=== PATIENT | male | born 1985 | race Caucasian/White ===

== ENCOUNTER 2016-08-18 17:34 | Emergency (ER) | payer SELFPAY ==
[2016-08-18] MEDS ORDERED: Bupivacaine 0.25% 10 ML SDV INJECT ONE (17:40)
[2016-08-18] MEDS ORDERED: Bupivacaine 0.25% 10 ML SDV ONE (17:41)
[2016-08-18] MEDS ORDERED: Ondansetron 4 MG/2 ML SDV ONE (17:44)
[2016-08-18] MEDS ORDERED: HYDROmorphone 2 MG/ML Syringe IVPUSH ONE (17:46)
[2016-08-18] MEDS ORDERED: Ondansetron 4 MG/2 ML SDV IVPUSH ONE (17:46)
[2016-08-18] MEDS: HYDROmorphone 1 MG/ML Syringe ONE ×2 (17:47→17:56)
[2016-08-18] MEDS ORDERED: Diphtheria,Pertussis(Acell),Tetanus Vaccine 0.5 ML Syringe IM ONE (17:52)
[2016-08-18] MEDS ORDERED: ceFAZolin 1,000 MG VIAL IVPUSH ONE (17:52)
[2016-08-18] MEDS ORDERED: ceFAZolin 1 GM Vial ONE (18:09)
--- NOTE | 2016-08-18 18:09 | EDM.PDOC ---
ED HPI GENERAL MEDICAL PROBLEM - General Chief Complaint: Laceration Stated Complaint: CUT RING FINGER ON LEFT HAND Time Seen by Provider: 08/18/16 17:38 - History of Present Illness INITIAL COMMENTS - FREE TEXT/NARRATIVE: HISTORY AND PHYSICAL: History of present illness: Patient is a 31-year-old white male presents with acute injury to the left hand (fourth digit) occurred by blunt force trauma work is And when they 50 pound plate dropped onto the digit. There is no tremor concern he denies date Review of systems: As per history of present illness and below otherwise all systems reviewed and negative. Past medical history: As per history of present illness and as reviewed below otherwise noncontributory. Surgical history: As per history of present illness and as reviewed below otherwise noncontributory. Social history: No reported history of drug or alcohol abuse. Family history: As per history of present illness and as reviewed below otherwise noncontributory. Physical exam: HEENT: Atraumatic, normocephalic, pupils reactive, negative for conjunctival pallor or scleral icterus, mucous membranes moist, throat clear, neck supple, nontender, trachea midline. Lungs: Clear to auscultation, breath sounds equal bilaterally, chest nontender. Heart: S1S2, regular, negative for clicks, rubs, or JVD. Abdomen: Soft, nondistended, nontender. Negative for masses or hepatosplenomegaly. Negative for costovertebral tenderness. Pelvis: Stable nontender. Genitourinary: Deferred. Rectal: Deferred. Extremities: Patient has a laceration approximately 3 cm and extends in an oblique manner from the distal aspect just proximal to the PIP of the fourth digit primarily on the dorsal aspect it does appear to be a likely/obvious fracture neurovascular exam is limited but grossly unremarkable there is some maceration of tissue blood most does appear viable Neuro: Awake, alert, oriented. Cranial nerves II through XII unremarkable. Cerebellum unremarkable. Motor and sensory unremarkable throughout. Exam nonfocal. Diagnostics: X-ray left hand Therapeutics: Wound was irrigated with copious amounts of normal saline patient was anesthetized with 0.5% Marcaine via digital block wound is closed with 4-0 nylon interrupted sutures Ancef 1 g was given IM tetanus 0.5 TD was given IM tube gauze bacitracin and AlumaFoam splint was applied Impression: #1 acute injury fourth digit left hand blunt force trauma with laceration/open fracture Definitive disposition and diagnosis as appropriate pending reevaluation and review of above. left 4th finger Pain Score (Numeric/FACES): 9 - Related Data Allergies Allergy/AdvReac Type Severity Reaction Status Date / Time No Known Allergies Allergy Verified 08/18/16 17:48 Home Meds: Home Meds . [No Known Home Meds] 06/23/13 [History] Past Medical History - Past Health History Medical/Surgical History: Denies Medical/Surgical History Social & Family History - Family History Family Medical History: Noncontributory - Tobacco Use Smoking Status *Q: Heavy Tobacco Smoker Years of Tobacco use: 14 Packs/Tins Daily: 1 - Recreational Drug Use Recreational Drug Use: No ED ROS GENERAL - Review of Systems Review Of Systems: ROS reveals no pertinent complaints other than HPI. ED EXAM, SKIN/RASH Exam: See Below (See dictation) Course - Vital Signs Text/Narrative:: Discussed options with patient including transfer to hand surgery and my not the patient declined agrees to closure splinting and followup with local hand surgeon next week. Last Recorded V/S: Last Vital Signs Temp 37.1 C 08/18/16 17:49 Pulse 106 H 08/18/16 17:49 Resp 20 08/18/16 17:49 BP 140/92 H 08/18/16 17:49 Pulse Ox 94 L 08/18/16 17:49 - Orders/Labs/Meds Orders: Active Orders 24 hr Category Date Time Status Vaccines to be Administered [RC] PER UNIT ROUTINE Care 08/18/16 17:52 Active Fingers Fourth Digit Lt F3 [CR] Stat Exams 08/18/16 17:49 Ordered Meds: Medications Discontinued Medications Generic Name Dose Route Start Last Admin Trade Name Freq PRN Reason Stop Dose Admin Bacitracin 1 dose 08/18/16 18:35 Bacitracin Oint 1 Gm TOP 08/18/16 18:36 ONETIME ONE Bupivacaine HCl 10 ml 08/18/16 17:40 08/18/16 17:55 Sensorcaine-Mpf 0.25% INJECT 08/18/16 17:41 10 ml ONETIME ONE Administration Bupivacaine HCl Confirm 08/18/16 17:41 08/18/16 17:47 Sensorcaine-Mpf 0.25% Administered 08/18/16 17:42 Not Given Dose 10 ml .ROUTE .STK-MED ONE Cefazolin Sodium 1,000 mg 08/18/16 17:52 08/18/16 18:16 Ancef IVPUSH 08/18/16 17:53 1,000 mg ONETIME ONE Administration Cefazolin Sodium Confirm 08/18/16 18:09 08/18/16 18:22 Ancef Administered 08/18/16 18:10 Not Given Dose 1 gm .ROUTE .STK-MED ONE Diphtheria/Tetanus/Acell Pertussis 0.5 ml 08/18/16 17:52 08/18/16 18:16 Adacel IM 08/18/16 17:53 0.5 ml .ONCE ONE Administration Hydromorphone HCl Confirm 08/18/16 17:44 08/18/16 17:56 Dilaudid Administered 08/18/16 17:45 1 mg Dose Administration 1 mg .ROUTE .STK-MED ONE Hydromorphone HCl 1 mg 08/18/16 17:46 08/18/16 17:57 Dilaudid IVPUSH 08/18/16 17:47 1 mg ONETIME ONE Administration Sterile Water Confirm 08/18/16 18:11 Sterile Water For Injection Administered 08/18/16 18:12 Dose 20 mls @ as directed .ROUTE .STK-MED ONE Lidocaine HCl 20 ml 08/18/16 18:18 Xylocaine 1% INJECT 08/18/16 18:19 ONETIME ONE Ondansetron HCl Confirm 08/18/16 17:44 08/18/16 17:47 Zofran Administered 08/18/16 17:45 Not Given Dose 4 mg .ROUTE .STK-MED ONE Ondansetron HCl 4 mg 08/18/16 17:46 08/18/16 17:56 Zofran IVPUSH 08/18/16 17:47 4 mg ONETIME ONE Administration Departure - Departure Time of Disposition: 18:10 Disposition: Home, Self-Care 01 Condition: good Clinical Impression: Open fracture - Discharge Information Referrals: PCP,None [Primary Care Provider] - Forms: ED Department Discharge Additional Instructions: The following information is given to patients seen in the emergency department who are being discharged to home. This information is to outline your options for follow-up care. We provide all patients seen in our emergency department with a follow-up referral. The need for follow-up, as well as the timing and circumstances, are variable depending upon the specifics of your emergency department visit. If you don't have a primary care physician on staff, we will provide you with a referral. We always advise you to contact your personal physician following an emergency department visit to inform them of the circumstance of the visit and for follow-up with them and/or the need for any referrals to a consulting specialist. The emergency department will also refer you to a specialist when appropriate. This referral assures that you have the opportunity for followup care with a specialist. All of these measure are taken in an effort to provide you with optimal care, which includes your followup. Under all circumstances we always encourage you to contact your private physician who remains a resource for coordinating your care. When calling for followup care, please make the office aware that this follow-up is from your recent emergency room visit. If for any reason you are refused follow-up, please contact the [facility] emergency department at and asked to speak to the emergency department charge nurse. [facility] specialty clinic-Plastics [address] [place] [id number] Hydrocodone Keflex as prescribed dressing changes after 48 hours twice daily splint as directed elevate as discussed followup plastic surgery call for appointment suture removal 10-14 days - My Orders Last 24 Hours: My Active Orders 08/18/16 17:49 Fingers Fourth Digit Lt F3 [CR] Stat 08/18/16 17:52 Vaccines to be Administered [RC] PER UNIT ROUTINE - Assessment/Plan Last 24 Hours: My Active Orders 08/18/16 17:49 Fingers Fourth Digit Lt F3 [CR] Stat 08/18/16 17:52 Vaccines to be Administered [RC] PER UNIT ROUTINE
[2016-08-18] MEDS ORDERED: Water For Injection, Sterile 20 ML ONE (18:11)
[2016-08-18] MEDS ORDERED: Lidocaine 1% 20 ML MDV INJECT ONE (18:18)
[2016-08-18] MEDS ORDERED: Bacitracin Oint 1 GM U/D Packet TOP ONE (18:35)
[2016-08-18 19:05] VITALS: BP 143/92
--- NOTE | 2016-08-19 10:02 | CR ---
EXAM DATE: 08/18/16 PATIENT'S AGE: 31 Patient: WILLIAM GARCIA Facility: [place], [place] Site . Site : 1985 Study: XRay Extremity Left Fourth Digit [id number]/31/2017 6:29:00 PM Ordering Physician: Angelita Lawrence Final Report: INDICATION: Crush injury. TECHNIQUE: Three views of the left 4th finger. COMPARISON: None. IMPRESSION: There is a laceration involving the tip of the 4th finger, with an associated mildly comminuted intra-articular fracture extending obliquely through the base of the 4th distal phalanx. There is up to 2 mm of ulnar sided displacement at the fracture site. There is 1 mm of volar displacement also noted. Dictated by Christopher Higgins MD @ 08/18/2016 7:07:05 PM Dictated by: Christopher Higgins MD @ 08/18/2016 19:07:10 (Electronic Signature) Report Signed by Proxy. ISRRAEL
== END 2016-08-18 19:00 | disposition home or self-care (01) ==
LOC: MW.ED 17:34
DX: S62.635B Displaced fracture of distal phalanx of left ring finger, initial encounter for open fracture (principal); S61.215A Laceration without foreign body of left ring finger without damage to nail, initial encounter; F17.210 Nicotine dependence, cigarettes, uncomplicated; Z23 Encounter for immunization; W22.8XXA Striking against or struck by other objects, initial encounter
CPT/HCPCS: 12002; 73140; 90471; 90715; 96374; 96375; 99283; A4566; J0690; J1170; J2405; 99284

== ENCOUNTER 2017-02-01 19:59 | Emergency (ER) | payer BC ==
--- NOTE | 2017-02-01 20:21 | EDM.PDOC ---
ED HPI GENERAL MEDICAL PROBLEM - General Chief Complaint: ENT Problem Stated Complaint: PAIN LT EAR Time Seen by Provider: 02/01/17 20:20 Source of Information: Reports: Patient History Limitations: Reports: No Limitations - History of Present Illness INITIAL COMMENTS - FREE TEXT/NARRATIVE: History of present illness: 31-year-old male presenting with complaints of bilateral ear pain. Patient indicates that he has used peroxide as well as vegetable oil in his ear because the pain. Patient also indicates he cleaned his ears with Q-tips and try to use the Q-tips to administer medication into his ears. Review of systems: As per history of present illness and below otherwise all systems reviewed and negative. Past medical history: As per history of present illness and as reviewed below otherwise noncontributory. Surgical history: As per history of present illness and as reviewed below otherwise noncontributory. Social history: No reported history of drug or alcohol abuse. Family history: As per history of present illness and as reviewed below otherwise noncontributory. Physical exam: HEENT: Atraumatic, normocephalic, pupils reactive, negative for conjunctival pallor or scleral icterus, mucous membranes moist, bilateral TMs noted to be red dull and bulging with left canal swollen and erythematous and exquisitely tender to palpation otherwise throat clear, neck supple, nontender, trachea midline. Lungs: Clear to auscultation, breath sounds equal bilaterally, chest nontender. Heart: S1S2, regular, negative for clicks, rubs, or JVD. Abdomen: Soft, nondistended, nontender. Negative for masses or hepatosplenomegaly. Negative for costovertebral tenderness. Pelvis: Stable nontender. Genitourinary: Deferred. Rectal: Deferred. Extremities: Atraumatic, negative for cords or calf pain. Neurovascular unremarkable. Neuro: Awake, alert, oriented. Cranial nerves II through XII unremarkable. Cerebellum unremarkable. Motor and sensory unremarkable throughout. Exam nonfocal. Diagnostics: [] Therapeutics: [] Impression: [Bilateral otitis media Otitis externa on the left] Plan: [Eardrops ominously oral antibiotics] Definitive disposition and diagnosis as appropriate pending reevaluation and review of above. - Related Data Allergies Allergy/AdvReac Type Severity Reaction Status Date / Time No Known Allergies Allergy Verified 02/01/17 20:18 Home Meds: Home Meds Amoxicillin [IMW: Amoxicillin] 500 mg PO .THREE TIMES DAILY #30 cap 02/01/17 [Rx ] Hydrocort/Neomycin/Polymyxin B [Cortisporin Otic Soln] 3 drop .XX 5XDAY #1 bottle 02/01/17 [Rx] Past Medical History - Past Health History Medical/Surgical History: Denies Medical/Surgical History Musculoskeletal History: Reports: Fracture Other Musculoskeletal History: fx lt ring finger Endocrine/Metabolic History: Reports: Obesity/BMI 30+ - Past Surgical History Head Surgeries/Procedures: Reports: None Social & Family History - Family History Family Medical History: Noncontributory - Tobacco Use Smoking Status *Q: Never Smoker Years of Tobacco use: 14 Packs/Tins Daily: 1 - Recreational Drug Use Recreational Drug Use: No ED ROS GENERAL - Review of Systems Review Of Systems: See Below (History of present illness) ED EXAM, GENERAL - Physical Exam Exam: See Below (See history of present illness) Departure - Departure Time of Disposition: 20:21 Disposition: Home, Self-Care 01 Condition: Good Clinical Impression: Otitis media, Otitis externa - Discharge Information Prescriptions: Amoxicillin [IMW: Amoxicillin] 500 mg PO .THREE TIMES DAILY #30 cap Hydrocort/Neomycin/Polymyxin B [Cortisporin Otic Soln] 3 drop .XX 5XDAY #1 bottle Referrals: PCP,None [Primary Care Provider] - Additional Instructions: The following information is given to patients seen in the emergency department who are being discharged to home. This information is to outline your options for follow-up care. We provide all patients seen in our emergency department with a follow-up referral. The need for follow-up, as well as the timing and circumstances, are variable depending upon the specifics of your emergency department visit. If you don't have a primary care physician on staff, we will provide you with a referral. We always advise you to contact your personal physician following an emergency department visit to inform them of the circumstance of the visit and for follow-up with them and/or the need for any referrals to a consulting specialist. The emergency department will also refer you to a specialist when appropriate. This referral assures that you have the opportunity for follow-up care with a specialist. All of these measure are taken in an effort to provide you with optimal care, which includes your follow-up. Under all circumstances we always encourage you to contact your private physician who remains a resource for coordinating your care. When calling for follow-up care, please make the office aware that this follow-up is from your recent emergency room visit. If for any reason you are refused follow-up, please contact the [facility] Emergency Department at and asked to speak to the emergency department charge nurse. Apply medication as directed Follow-up with PCP in 2-3 days Return to ED as needed as discussed
[2017-02-01 21:06] VITALS: BP 173/86
== END 2017-02-01 21:07 | disposition home or self-care (01) ==
LOC: MW.ED 19:59
DX: H66.93 Otitis media, unspecified, bilateral (principal); H60.92 Unspecified otitis externa, left ear
CPT/HCPCS: 99282

== ENCOUNTER 2018-04-17 19:39 | Emergency (ER) | payer OTHER ==
[2018-04-17] MEDS ORDERED: Ketorolac 60 MG/2 ML SDV IM ONE (19:51)
--- NOTE | 2018-04-17 19:55 | EDM.PDOC ---
ED HPI GENERAL MEDICAL PROBLEM - General Chief Complaint: Back Pain or Injury Stated Complaint: LOWER BACK PAIN Time Seen by Provider: 04/17/18 19:49 - History of Present Illness INITIAL COMMENTS - FREE TEXT/NARRATIVE: HISTORY AND PHYSICAL: History of present illness: Patient is a 32-year-old white male presents with a concern of left back pain that occurred when he slipped and nearly fell catching himself he states this pain was immediate subsequent had no numbness weakness no incontinence or retention bowel or bladder he denies history chronic back pain center was no direct trauma. Review of systems: As per history of present illness and below otherwise all systems reviewed and negative. Past medical history: As per history of present illness and as reviewed below otherwise noncontributory. Surgical history: As per history of present illness and as reviewed below otherwise noncontributory. Social history: No reported history of drug or alcohol abuse. Family history: As per history of present illness and as reviewed below otherwise noncontributory. Physical exam: HEENT: Atraumatic, normocephalic, pupils reactive, negative for conjunctival pallor or scleral icterus, mucous membranes moist, throat clear, neck supple, nontender, trachea midline. Lungs: Clear to auscultation, breath sounds equal bilaterally, chest nontender. Heart: S1S2, regular, negative for clicks, rubs, or JVD. Abdomen: Soft, nondistended, nontender. Negative for masses or hepatosplenomegaly. Negative for costovertebral tenderness. Pelvis: Stable nontender. Genitourinary: Deferred. Rectal: Deferred. Extremities: Atraumatic, negative for cords or calf pain. Neurovascular unremarkable. Neuro: Awake, alert, oriented. Cranial nerves II through XII unremarkable. Cerebellum unremarkable. Motor and sensory unremarkable throughout. Exam nonfocal. Back: Patient has tenderness and spasm in the paravertebral region at the level of the lumbar spine this is on the left there is no vertebral body or point tenderness motor and sensory are normal patient is able stand on his toes back on his heels deep tendon reflexes are normal Diagnostics: None Therapeutics: Toradol 60 mg IM Impression: #1 acute lumbar strain Definitive disposition and diagnosis as appropriate pending reevaluation and review of above. - Related Data Allergies Allergy/AdvReac Type Severity Reaction Status Date / Time No Known Allergies Allergy Verified 03/03/18 12:46 Home Meds: Home Meds Acetaminophen/HYDROcodone [Hestand 325-5 MG] 1 tab PO Q4H PRN #30 tablet 03/08/18 [Rx] Past Medical History - Past Health History Medical/Surgical History: Denies Medical/Surgical History HEENT History: Reports: None Musculoskeletal History: Reports: Fracture Other Musculoskeletal History: hx fx wrist , crushed lt ring finger, Endocrine/Metabolic History: Reports: Obesity/BMI 30+ - Past Surgical History Head Surgeries/Procedures: Reports: None HEENT Surgical History: Reports: Tonsillectomy Social & Family History - Family History Family Medical History: Noncontributory ED ROS GENERAL - Review of Systems Review Of Systems: ROS reveals no pertinent complaints other than HPI. ED EXAM, GENERAL - Physical Exam Exam: See Below (See dictation) Course - Orders/Labs/Meds Orders: Active Orders 24 hr Category Date Time Status Ketorolac [Toradol] Med 04/17/18 19:51 Once 60 mg IM ONETIME ONE Medication Orders Ketorolac Tromethamine (Toradol) 60 mg IM ONETIME ONE Stop: 04/17/18 19:52 Meds: Medications Generic Name Dose Route Start Last Admin Trade Name Freq PRN Reason Stop Dose Admin Ketorolac Tromethamine 60 mg 04/17/18 19:51 Toradol IM 04/17/18 19:52 ONETIME ONE Departure - Departure Time of Disposition: 19:53 Disposition: Home, Self-Care 01 Condition: Good Clinical Impression: Lumbar strain - Discharge Information Referrals: PCP,None [Primary Care Provider] - Additional Instructions: The following information is given to patients seen in the emergency department who are being discharged to home. This information is to outline your options for follow-up care. We provide all patients seen in our emergency department with a follow-up referral. The need for follow-up, as well as the timing and circumstances, are variable depending upon the specifics of your emergency department visit. If you don't have a primary care physician on staff, we will provide you with a referral. We always advise you to contact your personal physician following an emergency department visit to inform them of the circumstance of the visit and for follow-up with them and/or the need for any referrals to a consulting specialist. The emergency department will also refer you to a specialist when appropriate. This referral assures that you have the opportunity for followup care with a specialist. All of these measure are taken in an effort to provide you with optimal care, which includes your followup. Under all circumstances we always encourage you to contact your private physician who remains a resource for coordinating your care. When calling for followup care, please make the office aware that this follow-up is from your recent emergency room visit. If for any reason you are refused follow-up, please contact the [facility] emergency department at and asked to speak to the emergency department charge nurse. Hydrocodone Flexeril is prescribed Medrol Dosepak as prescribed follow-up private medical doctor return as needed as discussed - My Orders Last 24 Hours: My Active Orders 04/17/18 19:51 Ketorolac [Toradol] 60 mg IM ONETIME ONE - Assessment/Plan Last 24 Hours: My Active Orders 04/17/18 19:51 Ketorolac [Toradol] 60 mg IM ONETIME ONE
[2018-04-17 19:57] VITALS: BP 113/83
== END 2018-04-17 20:15 | disposition home or self-care (01) ==
LOC: MW.ED 19:39
DX: S39.012A Strain of muscle, fascia and tendon of lower back, initial encounter (principal); W01.0XXA Fall on same level from slipping, tripping and stumbling without subsequent striking against object, initial encounter; E66.9 Obesity, unspecified
CPT/HCPCS: 96372; 99283; J1885; 99282